=== PATIENT | female | born 1940 ===

== ENCOUNTER 2018-09-23 07:20 | Outpatient (CLI) | payer MEDICARE | END 2018-09-23 07:21 | disposition home or self-care (01) | LOC: C.CTH 07:20 | DX: R10.32 Left lower quadrant pain (principal); K57.30 Diverticulosis of large intestine without perforation or abscess without bleeding; B65.9 Schistosomiasis, unspecified; K44.9 Diaphragmatic hernia without obstruction or gangrene; K21.9 Gastro-esophageal reflux disease without esophagitis ==

== ENCOUNTER 2018-10-11 11:00 | Outpatient (CLI) | payer MEDICARE | END 2018-10-11 11:01 | disposition home or self-care (01) | LOC: C.MRIC 11:00 | DX: R10.31 Right lower quadrant pain (principal); K57.30 Diverticulosis of large intestine without perforation or abscess without bleeding; K44.9 Diaphragmatic hernia without obstruction or gangrene; K21.9 Gastro-esophageal reflux disease without esophagitis ==

== ENCOUNTER 2018-12-07 13:56 | Outpatient (CLI) | payer MEDICARE | END 2018-12-07 13:57 | disposition home or self-care (01) | LOC: C.LAB 13:56 | DX: K44.9 Diaphragmatic hernia without obstruction or gangrene (principal); K21.9 Gastro-esophageal reflux disease without esophagitis; K57.30 Diverticulosis of large intestine without perforation or abscess without bleeding; R93.3 Abnormal findings on diagnostic imaging of other parts of digestive tract ==